=== PATIENT | male | born 1940 ===

== ENCOUNTER 2017-09-08 10:14 | Emergency (ER) | payer OTHER ==
[~2017-09-08] VITALS: Ht 177.8 cm; Wt 122.5 kg
[~2017-09-08 10:14] MED LIST: AMLO5 PO; ASPI81EC PO; ATEN50 PO; CHLO25B PO; DOCU100 PO; GABA600 PO; GEMF600 PO; GLUCHON PO; GLUCOSE PO; HYDACE10B PO; INSR10I SC; LOSA25 PO; METH10 PO; NORT25 PO; OMEP20ER PO; SIMV10 PO; UREATC TOP; WARF5 PO
[2017-09-08] MEDS ORDERED: AMLO10 PO (10:28)
[2017-09-08] MEDS ORDERED: BUDE10.22 INH (10:37)
[2017-09-08] MEDS ORDERED: CARB200 PO (10:37)
[2017-09-08] MEDS ORDERED: CARV25 PO (10:38)
[2017-09-08] MEDS ORDERED: INSULIN ASPART (10:39)
[2017-09-08] MEDS ORDERED: [UNRECOGNIZED DRUG - CODE] (10:39)
[2017-09-08] MEDS ORDERED: PREG150 PO (10:40)
[2017-09-08] MEDS ORDERED: OMEPRAZOLE MAGN20 MG PO (10:40)
[2017-09-08] MEDS ORDERED: TERA5 PO (10:40)
[2017-09-08] MEDS ORDERED: WARF5 PO (10:41)
[2017-09-08 11:00] LABS: BASOPHILS ABSOLUTE AUTO 0.04 K/mm3 (0.00-0.23); BASOPHILS PERCENT AUTO 1 % (0-2); EOSINOPHILS ABSOLUTE AUTO 0.13 K/mm3 (0.00-0.68); EOSINOPHILS PERCENT AUTO 2 % (0-6); Hematocrit 46.2 % (37.0-53.0); Hemoglobin 16.4 g/dL (13.5-17.5); IMMATURE GRAN ABSOLUTE AUTO 0.02 K/mm3 (0.00-0.10); IMMATURE GRAN PERCENT AUTO 0 % (0-1); LYMPHOCYTES ABSOLUTE AUTO 3.32 K/mm3 (0.84-5.20); LYMPHOCYTES PERCENT AUTO 38 % (21-46); MONOCYTES ABSOLUTE AUTO 0.61 K/mm3 (0.16-1.47); MONOCYTES PERCENT AUTO 7 % (4-13); Mean Corpuscular HGB 33.3 pg (26.0-34.0); Mean Corpuscular HGB Conc 35.5 g/dL (31.5-36.5); Mean Corpuscular Volume 94 fL (80-100); Mean Platelet Volume 10.9 fL (9.1-12.4); NEUTROPHILS ABSOLUTE AUTO 4.57 K/mm3 (1.96-9.15); NEUTROPHILS PERCENT AUTO 53 % (41-73); Platelet Count 144 K/mm3 (150-400); RDW Standard Deviation 44.7 fL (35.1-46.3); Red Blood Cell Count 4.93 M/mm3 (4.30-5.90); White Blood Cell Count 8.69 K/mm3 (4.00-11.30)
[2017-09-08 11:11] LABS: Alanine Aminotransfer (ALT/SGP 60 U/L (12-78); Albumin, Blood 3.4 g/dL (3.4-5.0); Albumin/Globulin Ratio 0.8 (0.8-1.8); Alk Phos 84 U/L (50-136); Anion Gap 12 mmol/L (6-16); Aspartate Aminotrans (AST/SGOT 52 U/L (12-37); Blood Urea Nitrogen 27 mg/dL (8-24); Bun/Creatinine Ratio 22.1 (12.0-20.0); CO2, Blood 23 mmol/L (21-32); Chloride, Blood 103 mmol/L (98-108); Creatinine, Blood 1.22 mg/dL (0.60-1.20); Globulin, Blood 4.4 g/dL (2.2-4.0); Glomerular Filtration Rate >60 (60-); Glucose, Blood 230 mg/dL (70-99); Potassium, Blood 3.5 mmol/L (3.5-5.5); Sodium, Blood 138 mmol/L (136-145); Total Protein, Blood 7.8 g/dL (6.4-8.2)
[2017-09-08 11:12] LABS: Troponin I <0.015 ng/mL (0.000-0.040)
[2017-09-08 11:20] LABS: International Normalized Ratio 1.31; Prothrombin Time Results 13.7 Sec (9.7-11.5)
[2017-09-08 11:38] LABS: Influenza A Negative (NEGATIVE); Influenza B Negative (NEGATIVE)
[2017-09-08] MEDS ORDERED: Zofran Odt4 MG SL (15:40)
== END 2017-09-08 16:20 | disposition home or self-care (01) ==
LOC: ER 10:14
PROVIDERS: Emergency Medicine
DX: R11.2 Nausea with vomiting, unspecified (principal); R10.9 Unspecified abdominal pain; I47.1 Supraventricular tachycardia; M26.629 Arthralgia of temporomandibular joint, unspecified side; G89.29 Other chronic pain; Z79.899 Other long term (current) drug therapy; Z79.01 Long term (current) use of anticoagulants; Z79.4 Long term (current) use of insulin
CPT/HCPCS: 36415; 71046; 80053; 83690; 84484; 85025; 85610; 87804; 93005; 93010; 96361; 96374; 96375; 96376; 99285; J1170; J2405; J7030

== ENCOUNTER 2019-06-21 15:04 | Emergency (ER) | payer OTHER ==
[~2019-06-21] VITALS: Ht 180.3 cm; Wt 129.3 kg
[~2019-06-21 15:04] MED LIST changes: +AMLO10 PO; +BUDE10.22 INH; +CARB200 PO; +CARV25 PO; +INSULIN ASPART; +OMEPRAZOLE MAGN20 MG PO; +PREG150 PO; +TERA5 PO; +Zofran Odt4 MG SL; +[UNRECOGNIZED DRUG - CODE]
[2019-06-21 16:08] LABS: International Normalized Ratio 2.55; Prothrombin Time Results 24.8 Sec (9.7-11.5)
== END 2019-06-21 16:44 | disposition home or self-care (01) ==
LOC: ER 15:04
PROVIDERS: Emergency Medicine
DX: R04.0 Epistaxis (principal); E11.9 Type 2 diabetes mellitus without complications; J44.9 Chronic obstructive pulmonary disease, unspecified; I10 Essential (primary) hypertension; Z79.899 Other long term (current) drug therapy
CPT/HCPCS: 30901; 36415; 85610; 99283-25

== ENCOUNTER 2019-06-23 08:57 | Emergency (ER) | payer OTHER ==
[~2019-06-23] VITALS: Ht 180.3 cm; Wt 113.4 kg
== END 2019-06-23 10:14 | disposition home or self-care (01) ==
LOC: ER 08:57
DX: Z48.01 Encounter for change or removal of surgical wound dressing (principal); E11.9 Type 2 diabetes mellitus without complications; I10 Essential (primary) hypertension; J44.9 Chronic obstructive pulmonary disease, unspecified; Z79.899 Other long term (current) drug therapy; Z79.01 Long term (current) use of anticoagulants; Z79.4 Long term (current) use of insulin

== ENCOUNTER 2020-03-23 19:20 | Emergency (ER) | payer OTHER ==
[~2020-03-23] VITALS: Ht 180.3 cm; Wt 120.2 kg
[~2020-03-23 19:20] MED LIST changes: +Bactrim Ds Tab1 EACH PO; +CEPH500 PO; +Capsaicin60 GM TOP; -LOSA25 PO; +LOSA50 PO
== END 2020-03-23 20:22 | disposition home or self-care (01) ==
LOC: ER 19:20
DX: Z76.0 Encounter for issue of repeat prescription (principal); E11.9 Type 2 diabetes mellitus without complications; J44.9 Chronic obstructive pulmonary disease, unspecified; I10 Essential (primary) hypertension; K21.9 Gastro-esophageal reflux disease without esophagitis; Z79.4 Long term (current) use of insulin; Z79.899 Other long term (current) drug therapy; Z79.01 Long term (current) use of anticoagulants
CPT/HCPCS: 99281

== ENCOUNTER 2021-02-26 21:08 | Emergency (ER) | payer OTHER ==
[~2021-02-26] VITALS: Ht 177.8 cm; Wt 127.0 kg
[2021-02-26 21:57] LABS: BASOPHILS ABSOLUTE AUTO 0.02 K/mm3 (0.00-0.23); BASOPHILS PERCENT AUTO 0 % (0-2); EOSINOPHILS ABSOLUTE AUTO 0.14 K/mm3 (0.00-0.68); EOSINOPHILS PERCENT AUTO 3 % (0-6); Hematocrit 36.7 % (37.0-53.0); Hemoglobin 12.1 g/dL (13.5-17.5); IMMATURE GRAN ABSOLUTE AUTO 0.01 K/mm3 (0.00-0.10); IMMATURE GRAN PERCENT AUTO 0 % (0-1); LYMPHOCYTES ABSOLUTE AUTO 1.01 K/mm3 (0.84-5.20); LYMPHOCYTES PERCENT AUTO 18 % (21-46); MONOCYTES ABSOLUTE AUTO 0.31 K/mm3 (0.16-1.47); MONOCYTES PERCENT AUTO 6 % (4-13); Mean Corpuscular HGB 33.9 pg (26.0-34.0); Mean Corpuscular Volume 103 fL (80-100); NEUTROPHILS ABSOLUTE AUTO 4.04 K/mm3 (1.96-9.15); NEUTROPHILS PERCENT AUTO 73 % (41-73); Platelet Count 116 K/mm3 (150-400); RDW Coefficient Variation 12.8 % (11.7-14.2); RDW Standard Deviation 48.9 fL (35.1-46.3); Red Blood Cell Count 3.57 M/mm3 (4.30-5.90); White Blood Cell Count 5.53 K/mm3 (4.00-11.30)
[2021-02-26 22:24] LABS: Albumin, Blood 3.1 g/dL (3.4-5.0); Bilirubin, Total 0.2 mg/dL (0.1-1.0); Bun/Creatinine Ratio 24.6 (12.0-20.0); Calcium, Blood 8.2 mg/dL (8.5-10.1); Creatinine, Blood 1.34 mg/dL (0.60-1.20); Globulin, Blood 3.2 g/dL (2.2-4.0); Potassium, Blood 4.4 mmol/L (3.5-5.5); Total Protein, Blood 6.3 g/dL (6.4-8.2)
== END 2021-02-27 01:19 | disposition home or self-care (01) ==
LOC: ER 21:08
PROVIDERS: Emergency Medicine
DX: E11.649 Type 2 diabetes mellitus with hypoglycemia without coma (principal); E11.22 Type 2 diabetes mellitus with diabetic chronic kidney disease; N18.30 Chronic kidney disease, stage 3 unspecified; J44.9 Chronic obstructive pulmonary disease, unspecified; I12.9 Hypertensive chronic kidney disease with stage 1 through stage 4 chronic kidney disease, or unspecified chronic kidney disease; Z79.01 Long term (current) use of anticoagulants; Z79.4 Long term (current) use of insulin; Z79.899 Other long term (current) drug therapy
CPT/HCPCS: 36415; 80053; 82947; 85025; 93005; 93010; 96374; 99285-25

== ENCOUNTER 2021-04-07 09:48 | Inpatient (IN) | payer OTHER ==
[~2021-04-07] VITALS: Ht 177.8 cm; Wt 127.0 kg
[~2021-04-07 09:48] MED LIST changes: -TERA5 PO; +Terazosin HCl10 MG PO
[2021-04-07 10:29] LABS: Appearance, Urine Hazy (Clear); Bilirubin, Urine Neg (Neg); Blood, Urine 2+ (Neg); Color, Urine Yellow (P-Yellow); Glucose Qualitative, Urine Neg (Neg); Ketones, Urine Neg (Neg); Leukocyte Esterase, Urine 2+ (Neg); Nitrite, Urine Neg (Neg); Protein, Urine 3+ (Neg); Specific Gravity, Urine 1.015 (1.003-1.022); Urobilinogen, Urine NORM (Normal)
[2021-04-07 10:29] LABS: BASOPHILS ABSOLUTE AUTO 0.02 K/mm3 (0.00-0.23); BASOPHILS PERCENT AUTO 1 % (0-2); EOSINOPHILS ABSOLUTE AUTO 0.14 K/mm3 (0.00-0.68); EOSINOPHILS PERCENT AUTO 3 % (0-6); Hematocrit 39.1 % (37.0-53.0); Hemoglobin 12.5 g/dL (13.5-17.5); IMMATURE GRAN ABSOLUTE AUTO 0.01 K/mm3 (0.00-0.10); IMMATURE GRAN PERCENT AUTO 0 % (0-1); LYMPHOCYTES ABSOLUTE AUTO 1.11 K/mm3 (0.84-5.20); LYMPHOCYTES PERCENT AUTO 26 % (21-46); MONOCYTES ABSOLUTE AUTO 0.25 K/mm3 (0.16-1.47); MONOCYTES PERCENT AUTO 6 % (4-13); Mean Corpuscular HGB 33.2 pg (26.0-34.0); Mean Corpuscular Volume 104 fL (80-100); Mean Platelet Volume 11.1 fL (9.1-12.4); NEUTROPHILS ABSOLUTE AUTO 2.71 K/mm3 (1.96-9.15); NEUTROPHILS PERCENT AUTO 64 % (41-73); Platelet Count 108 K/mm3 (150-400); RDW Coefficient Variation 13.1 % (11.7-14.2); RDW Standard Deviation 50.3 fL (35.1-46.3); Red Blood Cell Count 3.76 M/mm3 (4.30-5.90); White Blood Cell Count 4.24 K/mm3 (4.00-11.30)
[2021-04-07 10:39] LABS: Alanine Aminotransfer (ALT/SGP 18 U/L (12-78); Albumin, Blood 3.3 g/dL (3.4-5.0); Albumin/Globulin Ratio 0.9 (0.8-1.8); Alk Phos 71 U/L (50-136); Anion Gap 1 mmol/L (6-16); Aspartate Aminotrans (AST/SGOT 13 U/L (12-37); Bilirubin, Total 0.3 mg/dL (0.1-1.0); Blood Urea Nitrogen 31 mg/dL (8-24); Bun/Creatinine Ratio 22.5 (12.0-20.0); CO2, Blood 35 mmol/L (21-32); Calcium, Blood 8.6 mg/dL (8.5-10.1); Chloride, Blood 109 mmol/L (98-108); Creatinine, Blood 1.38 mg/dL (0.60-1.20); Globulin, Blood 3.6 g/dL (2.2-4.0); Glomerular Filtration Rate 50 (60-); Glucose, Blood 98 mg/dL (70-99); Potassium, Blood 4.4 mmol/L (3.5-5.5); Sodium, Blood 145 mmol/L (136-145); Total Protein, Blood 6.9 g/dL (6.4-8.2); Troponin I <0.015 ng/mL (0.000-0.040)
[2021-04-07 11:06] LABS: Bacteria Many /hpf; Squamous Epithelial Cells Rare /hpf (Few); White Blood Cells, Urine 25-50 /hpf (0-5)
[2021-04-07] MEDS ORDERED: CEFP200 PO ×2 (11:13→14:24)
[2021-04-07] MEDS ORDERED: AZIT250 PO ×2 (11:13→14:24)
[2021-04-07 16:22] LABS: BASOPHILS ABSOLUTE AUTO 0.02 K/mm3 (0.00-0.23); BASOPHILS PERCENT AUTO 0 % (0-2); EOSINOPHILS ABSOLUTE AUTO 0.12 K/mm3 (0.00-0.68); EOSINOPHILS PERCENT AUTO 2 % (0-6); Hematocrit 42.1 % (37.0-53.0); Hemoglobin 13.7 g/dL (13.5-17.5); IMMATURE GRAN ABSOLUTE AUTO 0.07 K/mm3 (0.00-0.10); IMMATURE GRAN PERCENT AUTO 1 % (0-1); LYMPHOCYTES ABSOLUTE AUTO 1.57 K/mm3 (0.84-5.20); LYMPHOCYTES PERCENT AUTO 27 % (21-46); MONOCYTES ABSOLUTE AUTO 0.16 K/mm3 (0.16-1.47); MONOCYTES PERCENT AUTO 3 % (4-13); Mean Corpuscular HGB 33.8 pg (26.0-34.0); Mean Corpuscular HGB Conc 32.5 g/dL (31.5-36.5); Mean Corpuscular Volume 104 fL (80-100); Mean Platelet Volume 10.6 fL (9.1-12.4); NEUTROPHILS ABSOLUTE AUTO 3.96 K/mm3 (1.96-9.15); NEUTROPHILS PERCENT AUTO 67 % (41-73); Platelet Count 114 K/mm3 (150-400); RDW Coefficient Variation 13.1 % (11.7-14.2); RDW Standard Deviation 50.1 fL (35.1-46.3); Red Blood Cell Count 4.05 M/mm3 (4.30-5.90)
[2021-04-07 16:33] LABS: International Normalized Ratio 1.04; Prothrombin Time Results 11.2 Sec (9.7-11.5)
[2021-04-07 16:37] LABS: Bun/Creatinine Ratio 24.2 (12.0-20.0); Calcium, Blood 8.8 mg/dL (8.5-10.1); Creatinine, Blood 1.2 mg/dL (0.60-1.20); Potassium, Blood 4.9 mmol/L (3.5-5.5)
[2021-04-07] MEDS ORDERED: NOVOLOG FL100 UNIT/3 SC (16:56)
[2021-04-07] MEDS ORDERED: NOVOLIN N100 UNIT/2 SC (16:57)
[2021-04-07] MEDS ORDERED: LOSARTAN POTAS100 M1 PO (16:57)
[2021-04-07] MEDS ORDERED: STIOLTO RESPIMAT4 G1 INH (16:58)
[2021-04-07] MEDS ORDERED: Aspir 8181 MG PO (16:59)
[2021-04-07] MEDS ORDERED: VITAMIN D31000 UNI1 PO (17:00)
[2021-04-07 19:08] LABS: CHOL/HDL RATIO 5.6; Cholesterol 201 mg/dL (50-200); HDL Cholesterol 36 mg/dL (>39); LDL/HDL RATIO 3.3; Low Density Lipoprotein Chol 119 mg/dL (0-110); Triglycerides 231 mg/dL (30-160); Very Low Density Lipoprot Chol 46 mg/dL (6-32)
[2021-04-08 04:11] LABS: BASOPHILS ABSOLUTE AUTO 0.01 K/mm3 (0.00-0.23); BASOPHILS PERCENT AUTO 0 % (0-2); EOSINOPHILS PERCENT AUTO 0 % (0-6); Hemoglobin 13.4 g/dL (13.5-17.5); IMMATURE GRAN ABSOLUTE AUTO 0.01 K/mm3 (0.00-0.10); IMMATURE GRAN PERCENT AUTO 0 % (0-1); LYMPHOCYTES ABSOLUTE AUTO 0.63 K/mm3 (0.84-5.20); LYMPHOCYTES PERCENT AUTO 14 % (21-46); MONOCYTES ABSOLUTE AUTO 0.14 K/mm3 (0.16-1.47); MONOCYTES PERCENT AUTO 3 % (4-13); Mean Corpuscular HGB 33.6 pg (26.0-34.0); Mean Corpuscular HGB Conc 32.7 g/dL (31.5-36.5); Mean Corpuscular Volume 103 fL (80-100); Mean Platelet Volume 11.2 fL (9.1-12.4); NEUTROPHILS ABSOLUTE AUTO 3.89 K/mm3 (1.96-9.15); NEUTROPHILS PERCENT AUTO 83 % (41-73); Platelet Count 118 K/mm3 (150-400); RDW Standard Deviation 48.9 fL (35.1-46.3); Red Blood Cell Count 3.99 M/mm3 (4.30-5.90); White Blood Cell Count 4.68 K/mm3 (4.00-11.30)
[2021-04-08 04:38] LABS: Albumin, Blood 3.4 g/dL (3.4-5.0); Albumin/Globulin Ratio 0.9 (0.8-1.8); Bilirubin, Total 0.4 mg/dL (0.1-1.0); Bun/Creatinine Ratio 23.3 (12.0-20.0); Calcium, Blood 8.9 mg/dL (8.5-10.1); Creatinine, Blood 1.33 mg/dL (0.60-1.20); Globulin, Blood 3.7 g/dL (2.2-4.0); Total Protein, Blood 7.1 g/dL (6.4-8.2)
--- NOTE | 2021-04-08 07:14 | NUR ---
SHIFT SUMMARY NO ACUTE EVENTS THIS SHIFT. PT ALERT AND ORIENTED X4. ON FLUID RESTRICTIONS. GENERALIZED WEAKNESS. O2 SATS MAINTAINING OVER 97% ON 2L NC. HR AFIB 80'S-100'S. HAS ESPINOZA IN PLACE DRAINING YELLOW URINE TO GRAVITY. IV IN RIGHT ARM. ASLEEP THROUGH MOST OF NIGHT. PLEASANT AND COOPERATIVE TO CARE. WILL CONTINUE TO MONITOR TILL REPORT GIVEN TO DAYSHIFT RN
--- NOTE | 2021-04-08 09:13 | NUR ---
US IN W/PT.
[2021-04-09 04:51] LABS: Bun/Creatinine Ratio 29.7 (12.0-20.0); Calcium, Blood 8.9 mg/dL (8.5-10.1); Creatinine, Blood 1.38 mg/dL (0.60-1.20); Free Thyroxine 0.75 ng/dL (0.70-1.60); Potassium, Blood 4.9 mmol/L (3.5-5.5)
--- NOTE | 2021-04-09 07:10 | NUR ---
SUMMARY PT REPORTS DID NOT SLEEP WELL. DENIED CP OR SOB TONIGHT.GLUCOSE STABLE. PT REQUESTING CAPSACIN CREAM FOR FEET THIS AM. WILL REPORT TO DAY RN.
[2021-04-09] MEDS ORDERED: INSULANPEN SC (11:09)
[2021-04-09] MEDS ORDERED: HUMULIN R100 UNIT/2 SC (11:20)
--- NOTE | 2021-04-09 11:35 | NUR ---
UPDATE PT WAS UP TO SIDE OF BED, DANGLING; NO REPORT OF LIGHT HEADEDNESS OR DIZZINOUS. PT UP WITH GAITBELT AND FWW TO AMBULATE ABOUT 20 FEET WITH RT. PT TOLERATED WELL. O2 SAT2 REMINED IN THE 90'S.
[2021-04-09] MEDS ORDERED: FURO40 PO (11:43)
[2021-04-09] MEDS ORDERED: PRED20 PO (11:43)
--- NOTE | 2021-04-09 12:28 | NUR ---
UPDATED FAMILY THIS RN CONTACTED THE DAUGHTER IN-LAW OF PT AFTER GETTING PERMISSION. DAUGHTER IN-LAW EXPRESSED CONCERNS OF WHEN PT IS DISCAHRGED BECAUSE NO ONE WILL BE HOME AT NIGHT TIME WITH HIM. SHE STATED THAT THE [facility] IS PREPAR[facility] A PLACE FOR PT IN [place] BUT THE PLACE WILL NOT BE READY UNTIL THE END OF APRIL. DAUGHTER IN-LAW ASKED FOR MEDICAL STAFF TO TALK TO PT ABOUT [facility] SNF UNTIL [facility] IS READY FOR PT. THIS RN EXPLAINED THAT I COULD INFROM THE OPTION OF SNF TO PT, BUT PT ULTIMATETLEY MAKES THE CALL. DAUGHTER IN-LAW UNDERSTOOD.
--- NOTE | 2021-04-09 15:14 | NUR ---
DISCHARGE AT 1505, PT WAS DISCHARGED TO GO HOME. FAMILY MEMBER OUT [facility], [employer] MEMBER TRANSFERED PT VIA WHEEL CHAIR. PT BELONGING IN BAG WITH PT.
== END 2021-04-09 15:07 | disposition home or self-care (01) | DRG 193 ==
LOC: ER 09:48 → SURS 18:12 → PCU 18:12 → SURS 21:10
PROVIDERS: Emergency Medicine; Internal Medicine; ADMIT Hospitalist
DX: J18.9 Pneumonia, unspecified organism (principal); J81.0 Acute pulmonary edema; J96.21 Acute and chronic respiratory failure with hypoxia; N39.0 Urinary tract infection, site not specified; J44.0 Chronic obstructive pulmonary disease with (acute) lower respiratory infection; J44.1 Chronic obstructive pulmonary disease with (acute) exacerbation; I48.20 Chronic atrial fibrillation, unspecified; Z20.822 Contact with and (suspected) exposure to COVID-19; B96.20 Unspecified Escherichia coli [E. coli] as the cause of diseases classified elsewhere; N18.30 Chronic kidney disease, stage 3 unspecified; E66.01 Morbid (severe) obesity due to excess calories; I48.0 Paroxysmal atrial fibrillation; E11.22 Type 2 diabetes mellitus with diabetic chronic kidney disease; I12.9 Hypertensive chronic kidney disease with stage 1 through stage 4 chronic kidney disease, or unspecified chronic kidney disease; G47.33 Obstructive sleep apnea (adult) (pediatric); E11.40 Type 2 diabetes mellitus with diabetic neuropathy, unspecified; K21.9 Gastro-esophageal reflux disease without esophagitis; Z96.653 Presence of artificial knee joint, bilateral; Z86.711 Personal history of pulmonary embolism; Z86.73 Personal history of transient ischemic attack (TIA), and cerebral infarction without residual deficits
CPT/HCPCS: 36415; 51702; 71045; 71260; 80048; 80053; 80061; 81001; 82947; 83880; 84439; 84443; 84484; 85025; 85610; 87077; 87086; 87186; 93005; 93010; 93306; 94640; 94644; 94660; 94760; 94761; 96365-59; 96366-59; 96367-59; 96375-59; 99285-25; A9270; J0456; J0696; J1650; J1815; J1940; J2920; J2930; J7050; J7512; Q9967

== ENCOUNTER 2021-04-16 15:38 | Inpatient (IN) | payer OTHER ==
[~2021-04-16] VITALS: Ht 177.8 cm; Wt 117.9 kg
[~2021-04-16 15:38] MED LIST changes: +AZIT250 PO; +Aspir 8181 MG PO; +CEFP200 PO; +FURO40 PO; +HUMULIN R100 UNIT/2 SC; +INSULANPEN SC; +LOSARTAN POTAS100 M1 PO; +NOVOLIN N100 UNIT/2 SC; +NOVOLOG FL100 UNIT/3 SC; +PRED20 PO; +STIOLTO RESPIMAT4 G1 INH; +VITAMIN D31000 UNI1 PO
[2021-04-16 16:04] LABS: BASOPHILS ABSOLUTE AUTO 0.03 K/mm3 (0.00-0.23); BASOPHILS PERCENT AUTO 0 % (0-2); EOSINOPHILS ABSOLUTE AUTO 0.08 K/mm3 (0.00-0.68); EOSINOPHILS PERCENT AUTO 1 % (0-6); Hematocrit 44.3 % (37.0-53.0); Hemoglobin 15.1 g/dL (13.5-17.5); IMMATURE GRAN ABSOLUTE AUTO 0.02 K/mm3 (0.00-0.10); IMMATURE GRAN PERCENT AUTO 0 % (0-1); LYMPHOCYTES ABSOLUTE AUTO 1.44 K/mm3 (0.84-5.20); LYMPHOCYTES PERCENT AUTO 22 % (21-46); MONOCYTES ABSOLUTE AUTO 0.36 K/mm3 (0.16-1.47); MONOCYTES PERCENT AUTO 5 % (4-13); Mean Corpuscular HGB 34.2 pg (26.0-34.0); Mean Corpuscular HGB Conc 34.1 g/dL (31.5-36.5); Mean Corpuscular Volume 101 fL (80-100); Mean Platelet Volume 11.5 fL (9.1-12.4); NEUTROPHILS ABSOLUTE AUTO 4.76 K/mm3 (1.96-9.15); NEUTROPHILS PERCENT AUTO 71 % (41-73); Platelet Count 143 K/mm3 (150-400); RDW Coefficient Variation 13.2 % (11.7-14.2); RDW Standard Deviation 48.9 fL (35.1-46.3); Red Blood Cell Count 4.41 M/mm3 (4.30-5.90); White Blood Cell Count 6.69 K/mm3 (4.00-11.30)
[2021-04-16 16:35] LABS: Alanine Aminotransfer (ALT/SGP 49 U/L (12-78); Albumin, Blood 3.1 g/dL (3.4-5.0); Albumin/Globulin Ratio 0.8 (0.8-1.8); Alk Phos 85 U/L (50-136); Anion Gap 7 mmol/L (6-16); Aspartate Aminotrans (AST/SGOT 18 U/L (12-37); Bilirubin, Total 0.7 mg/dL (0.1-1.0); Blood Urea Nitrogen 65 mg/dL (8-24); Bun/Creatinine Ratio 30.7 (12.0-20.0); CO2, Blood 30 mmol/L (21-32); Calcium, Blood 8.6 mg/dL (8.5-10.1); Chloride, Blood 102 mmol/L (98-108); Creatinine, Blood 2.12 mg/dL (0.60-1.20); Ethanol (Alcohol), Blood, Med <3 mg/dL; Globulin, Blood 3.9 g/dL (2.2-4.0); Glomerular Filtration Rate 30 (60-); Glucose, Blood 247 mg/dL (70-99); Potassium, Blood 3.9 mmol/L (3.5-5.5); Sodium, Blood 139 mmol/L (136-145)
[2021-04-16 17:40] LABS: Base Excess Venous -0.3 mmol/L; Bicarbonate Venous 24.4 mmol/L (24.0-30.0); PCO2 Venous 36 mmHg (38-42); PO2 Venous 195 mmHg (38-42); pH Blood Venous 7.43 (7.34-7.37)
[2021-04-16 18:30] LABS: SARS-Cov-2 (COVID-19) PCR, MMC NEGATIVE (NEGATIVE)
[2021-04-16 21:18] LABS: U Amphetamine Screen Not Detected; U Barbituate Screen Not Detected; U Benzodiazapine Screen Not Detected; U Buprenorphine Screen Not Detected; U Cannabinoids Screen Not Detected; U Cocaine Screen Not Detected; U Methadone Screen Not Detected; U Methamphetamine Screen Not Detected; U Opiates Screen Not Detected; U Oxycodone Screen Not Detected; U Phencyclidine Screen Not Detected; U Propoxyphene Screen Not Detected
[2021-04-16] MEDS ORDERED: PRED20 PO (21:59)
[2021-04-16] MEDS ORDERED: DOXY100 PO (21:59)
[2021-04-16 23:13] LABS: Source, Urine Catheter
[2021-04-16 23:23] LABS: Bilirubin, Urine Neg (Neg); Blood, Urine 2+ (Neg); Glucose Qualitative, Urine Neg (Neg); Ketones, Urine Neg (Neg); Leukocyte Esterase, Urine Neg (Neg); Nitrite, Urine Neg (Neg); Protein, Urine 1+ (Neg); Urobilinogen, Urine NORM (Normal)
[2021-04-16 23:29] LABS: Appearance, Urine Clear (Clear); Color, Urine Yellow (P-Yellow)
[2021-04-16 23:30] LABS: Amorphous Light (0-Heavy); Bacteria Rare /hpf; Hyaline Casts 25-50 /lpf (0-2); Red Blood Cells, Urine 25-50 /hpf (0-2); Squamous Epithelial Cells Rare /hpf (Few); White Blood Cells, Urine Not Seen /hpf (0-5)
--- NOTE | 2021-04-17 01:21 | NUR ---
ADMITTED 80 YR OLD MALE FROM THE ED WITH SOB, DX INCLUDE COPD EXACERBATION AND GENIA. POOR HISTORIAN, VOICE "I DONT KNOW" TO MANY QUESTIONS ASKED WITH ADMISSION. ORIENTED TO USE OF CALL LIGHT. CALL LIGHT IN [place]. BED ALARM ON.
--- NOTE | 2021-04-17 04:28 | NUR ---
WALL TAPER SUMMARY ADMITTED FOR COPD EXACERBATION. PT IS DNR. PT IS SLIGHTLY CONFUSED BUT PLEASANT. PT ON ROOM AIR WITH NO SIGNS OF RESPIRATORY DISTRESS. NO OTHER CONCERNS THIS SHIFT.
[2021-04-17 05:15] LABS: BASOPHILS ABSOLUTE AUTO 0.01 K/mm3 (0.00-0.23); BASOPHILS PERCENT AUTO 0 % (0-2); EOSINOPHILS ABSOLUTE AUTO 0.01 K/mm3 (0.00-0.68); EOSINOPHILS PERCENT AUTO 0 % (0-6); Hemoglobin 13.6 g/dL (13.5-17.5); IMMATURE GRAN ABSOLUTE AUTO 0.04 K/mm3 (0.00-0.10); IMMATURE GRAN PERCENT AUTO 1 % (0-1); LYMPHOCYTES ABSOLUTE AUTO 0.97 K/mm3 (0.84-5.20); LYMPHOCYTES PERCENT AUTO 12 % (21-46); MONOCYTES ABSOLUTE AUTO 0.21 K/mm3 (0.16-1.47); MONOCYTES PERCENT AUTO 3 % (4-13); Mean Corpuscular HGB 33.3 pg (26.0-34.0); Mean Corpuscular HGB Conc 33.2 g/dL (31.5-36.5); Mean Corpuscular Volume 101 fL (80-100); Mean Platelet Volume 11.1 fL (9.1-12.4); NEUTROPHILS ABSOLUTE AUTO 6.64 K/mm3 (1.96-9.15); NEUTROPHILS PERCENT AUTO 84 % (41-73); Platelet Count 128 K/mm3 (150-400); RDW Coefficient Variation 13.1 % (11.7-14.2); RDW Standard Deviation 48.2 fL (35.1-46.3); Red Blood Cell Count 4.08 M/mm3 (4.30-5.90); White Blood Cell Count 7.88 K/mm3 (4.00-11.30)
[2021-04-17 06:05] LABS: Albumin, Blood 2.9 g/dL (3.4-5.0); Albumin/Globulin Ratio 0.8 (0.8-1.8); Bilirubin, Total 0.4 mg/dL (0.1-1.0); Bun/Creatinine Ratio 32.8 (12.0-20.0); Calcium, Blood 8.4 mg/dL (8.5-10.1); Creatinine, Blood 1.92 mg/dL (0.60-1.20); Globulin, Blood 3.7 g/dL (2.2-4.0); Potassium, Blood 4.2 mmol/L (3.5-5.5); Total Protein, Blood 6.6 g/dL (6.4-8.2)
--- NOTE | 2021-04-17 23:39 | NUR ---
ASSUMPTION OF CARE 2149: PT PRESENTS IN BED, WATCHING HIGH SCHOOL FOOTBALL ON TV. ESPINOZA IN PLACE AND DRAINING DARK YELLOW URINE. AMBULATES VIA 2 PERSON ASSIST TO BSC FOR BOWEL MOVEMENT. SALINE LOCKED IV IN RFA. PT A&O X 2-3. LUNG SOUNDS CLEAR BUT DIMINISHED. PT PLEASANT WITH STAFF, WILL USE CALL LIGHT APPROPRIATELY TO COMMUNICATE NEEDS. BED ALARM ON, BED IN LOWEST POSITION. WILL CONTINUE TO MONITOR.
--- NOTE | 2021-04-18 04:56 | NUR ---
SHIFT SUMMARY PT WAS ABLE TO SLEEP WELL THIS SHIFT. BED IN LOWEST POSITION, CALL LIGHT WITHIN REACH. NO ACUTE CHANGES. ESPINOZA IN PLACE AND DRAINING DARK YELLOW URINE. CONTINUES ON ROOM AIR. IV FLUSHES WELL. WILL CONTINUE TO MONITOR.
[2021-04-18 06:13] LABS: Albumin, Blood 2.7 g/dL (3.4-5.0); Anion Gap 7 mmol/L (6-16); Blood Urea Nitrogen 62 mg/dL (8-24); Bun/Creatinine Ratio 38.3 (12.0-20.0); CO2, Blood 29 mmol/L (21-32); Calcium, Blood 8.7 mg/dL (8.5-10.1); Chloride, Blood 105 mmol/L (98-108); Creatinine, Blood 1.62 mg/dL (0.60-1.20); Glomerular Filtration Rate 41 (60-); Glucose, Blood 119 mg/dL (70-99); Phosphorus, Blood 3.4 mg/dL (2.5-4.9); Potassium, Blood 3.7 mmol/L (3.5-5.5); Sodium, Blood 141 mmol/L (136-145)
[2021-04-18 13:43] LABS: SARS-Cov-2 (COVID-19) PCR, MMC NEGATIVE (NEGATIVE)
[2021-04-18] MEDS ORDERED: GUAI600T33 PO (13:56)
[2021-04-18] MEDS ORDERED: Ventolin5 MG/1 ML INH (13:56)
[2021-04-18] MEDS ORDERED: OMEP20ER PO (13:57)
[2021-04-18] MEDS ORDERED: TERA5 PO (13:57)
[2021-04-18] MEDS ORDERED: CHLO25B PO (14:06)
--- NOTE | 2021-04-18 14:18 | NUR ---
FACILITY DISCHARGE COMPLETED. ORDERS FAXED TO [facility]. PACKET PLACED AT BEDSIDE. TRANSPORT SCHEDULED FOR 1630 VIA WHEELCHAIR. FAMILY/NOK NOTIFIED OF DC TIME AND PLAN. PATIENT NOTIFIED. ALL ARE AGREEABLE. BUFFING AND SUEDING MACHINE OPERATOR AND BEDSIDE RN NOTIFIED.
--- NOTE | 2021-04-18 14:58 | NUR ---
PT IS AO,BUT FORGETFULL AT TIMES,PT IS ON ROOM AIR,PT IS ONE ASSIST WITH GAIT BELT,PT HAS NO ACUTE CHANGES T/O SHIFT,PT ASSESSMENT REMAINS UNCHANGED. PT IS DISCHARGE TO [facility] FOR [facility], PT GATHER ALL BELONGINGS,PT SITING IN THE CHAIR WATING FOR TRANSPORT.
== END 2021-04-18 16:46 | DRG 682 ==
LOC: ER 15:38 → MEDS 23:19
PROVIDERS: Family Medicine; Internal Medicine; Student in an Organized Health Care Education/Training Program; ADMIT Hospitalist
PROC: 8E0ZXY6 Isolation (ICD-10-PCS; principal; 2021-04-16)
DX: N17.9 Acute kidney failure, unspecified (principal); J96.01 Acute respiratory failure with hypoxia; J44.1 Chronic obstructive pulmonary disease with (acute) exacerbation; F05 Delirium due to known physiological condition; N18.30 Chronic kidney disease, stage 3 unspecified; Z20.822 Contact with and (suspected) exposure to COVID-19; F03.90 Unspecified dementia, unspecified severity, without behavioral disturbance, psychotic disturbance, mood disturbance, and anxiety; N40.0 Benign prostatic hyperplasia without lower urinary tract symptoms; E11.22 Type 2 diabetes mellitus with diabetic chronic kidney disease; E11.40 Type 2 diabetes mellitus with diabetic neuropathy, unspecified; K21.9 Gastro-esophageal reflux disease without esophagitis; G47.33 Obstructive sleep apnea (adult) (pediatric); I12.9 Hypertensive chronic kidney disease with stage 1 through stage 4 chronic kidney disease, or unspecified chronic kidney disease; F01.50 Vascular dementia, unspecified severity, without behavioral disturbance, psychotic disturbance, mood disturbance, and anxiety; Z86.711 Personal history of pulmonary embolism; Z96.653 Presence of artificial knee joint, bilateral; Z79.4 Long term (current) use of insulin; Z79.899 Other long term (current) drug therapy; Z79.82 Long term (current) use of aspirin
CPT/HCPCS: 36415; 51701; 51702; 51798; 70450; 71046; 76770; 80053; 80069; 81001; 82436; 82570; 82607; 82746; 82803; 82947; 83036; 83880; 84300; 84540; 85025; 86592; 93005; 93010; 94640; 94644; 94760; 96360-59; 97110; 97116; 97162; 97165; 97530; 97535; 99285-25; A9270; G0480; J1650; J1815; J2920; J7030; J7512; U0004

== ENCOUNTER 2021-04-23 10:24 | Inpatient (IN) | payer OTHER ==
[~2021-04-23] VITALS: Ht 177.8 cm; Wt 117.9 kg
[~2021-04-23 10:24] MED LIST changes: +DOXY100 PO; +GUAI600T33 PO; +TERA5 PO; +Ventolin5 MG/1 ML INH
[2021-04-23 10:51] LABS: BASOPHILS ABSOLUTE AUTO 0.03 K/mm3 (0.00-0.23); BASOPHILS PERCENT AUTO 1 % (0-2); EOSINOPHILS ABSOLUTE AUTO 0.16 K/mm3 (0.00-0.68); EOSINOPHILS PERCENT AUTO 3 % (0-6); Hematocrit 40.2 % (37.0-53.0); Hemoglobin 13.6 g/dL (13.5-17.5); IMMATURE GRAN PERCENT AUTO 0 % (0-1); LYMPHOCYTES ABSOLUTE AUTO 1.39 K/mm3 (0.84-5.20); LYMPHOCYTES PERCENT AUTO 27 % (21-46); MONOCYTES ABSOLUTE AUTO 0.39 K/mm3 (0.16-1.47); MONOCYTES PERCENT AUTO 8 % (4-13); Mean Corpuscular HGB 34.6 pg (26.0-34.0); Mean Corpuscular HGB Conc 33.8 g/dL (31.5-36.5); Mean Corpuscular Volume 102 fL (80-100); Mean Platelet Volume 11.2 fL (9.1-12.4); NEUTROPHILS ABSOLUTE AUTO 3.25 K/mm3 (1.96-9.15); NEUTROPHILS PERCENT AUTO 62 % (41-73); Platelet Count 103 K/mm3 (150-400); RDW Coefficient Variation 13.7 % (11.7-14.2); RDW Standard Deviation 51.4 fL (35.1-46.3); Red Blood Cell Count 3.93 M/mm3 (4.30-5.90); White Blood Cell Count 5.22 K/mm3 (4.00-11.30)
[2021-04-23 11:21] LABS: Albumin, Blood 2.8 g/dL (3.4-5.0); Albumin/Globulin Ratio 0.8 (0.8-1.8); Bilirubin, Total 0.4 mg/dL (0.1-1.0); Calcium, Blood 8.9 mg/dL (8.5-10.1); Creatinine, Blood 1.5 mg/dL (0.60-1.20); Globulin, Blood 3.4 g/dL (2.2-4.0); Potassium, Blood 4.2 mmol/L (3.5-5.5); Total Protein, Blood 6.2 g/dL (6.4-8.2)
[2021-04-23] MEDS ORDERED: Stiolto Respimat Inh INH (12:09)
[2021-04-23 13:07] LABS: SARS-Cov-2 (COVID-19) PCR, MMC NEGATIVE (NEGATIVE)
--- NOTE | 2021-04-23 18:28 | NUR ---
SHIFT SUMMARY PATIENT ADMITTED FORM ED WITH SLURRED SPEECH. CT HEAD POSTITIVE FOR ISCHEMIC STROKE; NEURO CHECK COMPLETED, VSS, PATIENT WITH MILD SLURRED SPEECH; SPEECH EVAL COMPLETED-OKAY FOR COLD PUREED NO LIQUID UNTIL VIDEO SWALLOW COMPLETED TOMORROW. PT/OT TO EVAL TOMORROW, BEDREST CURRENTLY. PATIENT AOX4; URINATING VIA URINAL
[2021-04-24 05:16] LABS: BASOPHILS ABSOLUTE AUTO 0.02 K/mm3 (0.00-0.23); BASOPHILS PERCENT AUTO 0 % (0-2); EOSINOPHILS ABSOLUTE AUTO 0.12 K/mm3 (0.00-0.68); EOSINOPHILS PERCENT AUTO 2 % (0-6); Hematocrit 40.4 % (37.0-53.0); Hemoglobin 13.8 g/dL (13.5-17.5); IMMATURE GRAN ABSOLUTE AUTO 0.02 K/mm3 (0.00-0.10); IMMATURE GRAN PERCENT AUTO 0 % (0-1); LYMPHOCYTES ABSOLUTE AUTO 1.32 K/mm3 (0.84-5.20); LYMPHOCYTES PERCENT AUTO 26 % (21-46); MONOCYTES ABSOLUTE AUTO 0.34 K/mm3 (0.16-1.47); MONOCYTES PERCENT AUTO 7 % (4-13); Mean Corpuscular HGB 34.2 pg (26.0-34.0); Mean Corpuscular HGB Conc 34.2 g/dL (31.5-36.5); Mean Corpuscular Volume 100 fL (80-100); NEUTROPHILS ABSOLUTE AUTO 3.34 K/mm3 (1.96-9.15); NEUTROPHILS PERCENT AUTO 65 % (41-73); Platelet Count 102 K/mm3 (150-400); RDW Coefficient Variation 13.8 % (11.7-14.2); Red Blood Cell Count 4.03 M/mm3 (4.30-5.90); White Blood Cell Count 5.16 K/mm3 (4.00-11.30)
[2021-04-24 05:39] LABS: Alanine Aminotransfer (ALT/SGP 40 U/L (12-78); Albumin, Blood 2.8 g/dL (3.4-5.0); Albumin/Globulin Ratio 0.8 (0.8-1.8); Alk Phos 96 U/L (50-136); Anion Gap 5 mmol/L (6-16); Aspartate Aminotrans (AST/SGOT 14 U/L (12-37); Bilirubin, Total 0.5 mg/dL (0.1-1.0); Blood Urea Nitrogen 39 mg/dL (8-24); Bun/Creatinine Ratio 31.2 (12.0-20.0); CHOL/HDL RATIO 6.2; CO2, Blood 28 mmol/L (21-32); Calcium, Blood 9.3 mg/dL (8.5-10.1); Chloride, Blood 108 mmol/L (98-108); Cholesterol 187 mg/dL (50-200); Creatinine, Blood 1.25 mg/dL (0.60-1.20); Globulin, Blood 3.6 g/dL (2.2-4.0); Glomerular Filtration Rate 56 (60-); Glucose, Blood 150 mg/dL (70-99); HDL Cholesterol 30 mg/dL (>39); LDL/HDL RATIO 3.1; Low Density Lipoprotein Chol 92 mg/dL (0-110); Potassium, Blood 4.2 mmol/L (3.5-5.5); Sodium, Blood 141 mmol/L (136-145); Total Protein, Blood 6.4 g/dL (6.4-8.2); Triglycerides 327 mg/dL (30-160); Very Low Density Lipoprot Chol 65 mg/dL (6-32)
--- NOTE | 2021-04-24 06:32 | NUR ---
VSS. PT SLEPT THROUGHOUT MOST OF SHIFT. NO CHANGES TO NEURO CHECKS Q4H. SLIGHTLY SLURRED SPEECH. L LE UNABLE TO HOLD OFF BED ENTIRE 10 SECONDS. NO OTHER NEURO DEFICITS NOTED. BS Q6H. VOIDS USING URINAL AT BEDSIDE.
[2021-04-25 04:39] LABS: Albumin, Blood 2.8 g/dL (3.4-5.0); Anion Gap 6 mmol/L (6-16); Blood Urea Nitrogen 37 mg/dL (8-24); Bun/Creatinine Ratio 25.9 (12.0-20.0); CO2, Blood 27 mmol/L (21-32); Calcium, Blood 9.2 mg/dL (8.5-10.1); Chloride, Blood 110 mmol/L (98-108); Creatinine, Blood 1.43 mg/dL (0.60-1.20); Glomerular Filtration Rate 48 (60-); Glucose, Blood 152 mg/dL (70-99); Phosphorus, Blood 3.7 mg/dL (2.5-4.9); Potassium, Blood 4.1 mmol/L (3.5-5.5); Sodium, Blood 143 mmol/L (136-145)
[2021-04-25 14:20] LABS: SARS-Cov-2 (COVID-19) PCR, MMC NEGATIVE (NEGATIVE)
--- NOTE | 2021-04-25 18:02 | NUR ---
DISCHARGE PATIENT DISCHARGED IN STABLE CONDITION TO [facility] [place]. PERIPHERAL IV REMOVED, TELE MONITORING D/C. ALL BELONGINGS PACKED AND SENT WITH PATIENT. PATIENT TRANSFERRED VIA WHEELCHAIR EMS
== END 2021-04-25 17:51 | DRG 66 ==
LOC: ER 10:24 → SURS 12:04
PROVIDERS: Emergency Medicine; Family Medicine; Nurse Practitioner Acute Care; ADMIT Internal Medicine
DX: I63.81 Other cerebral infarction due to occlusion or stenosis of small artery (principal); Z20.822 Contact with and (suspected) exposure to COVID-19; R47.1 Dysarthria and anarthria; R29.810 Facial weakness; R13.10 Dysphagia, unspecified; E11.22 Type 2 diabetes mellitus with diabetic chronic kidney disease; I12.9 Hypertensive chronic kidney disease with stage 1 through stage 4 chronic kidney disease, or unspecified chronic kidney disease; N18.30 Chronic kidney disease, stage 3 unspecified; J44.9 Chronic obstructive pulmonary disease, unspecified; G47.33 Obstructive sleep apnea (adult) (pediatric); E78.1 Pure hyperglyceridemia; M19.90 Unspecified osteoarthritis, unspecified site; I48.91 Unspecified atrial fibrillation; E66.01 Morbid (severe) obesity due to excess calories; N40.0 Benign prostatic hyperplasia without lower urinary tract symptoms; F03.90 Unspecified dementia, unspecified severity, without behavioral disturbance, psychotic disturbance, mood disturbance, and anxiety; D69.6 Thrombocytopenia, unspecified; Z66 Do not resuscitate; Z68.37 Body mass index [BMI] 37.0-37.9, adult; Z86.711 Personal history of pulmonary embolism; Z79.899 Other long term (current) drug therapy; Z79.82 Long term (current) use of aspirin; Z79.4 Long term (current) use of insulin; Z79.52 Long term (current) use of systemic steroids
CPT/HCPCS: 36415; 70450; 74230; 80053; 80061; 80069; 82947; 83036; 83735; 85025; 92526; 92610; 92611; 93005; 93010; 93308; 93321; 93880; 94640; 94660; 94762; 97162; 97167; 97530; 97535; 99285-25; A9270; J1650; J1815; J7030; U0004

== ENCOUNTER → 2021-05-11 | Outpatient (CLI) | payer OTHER ==
[~2021-05-11] MED LIST changes: +Stiolto Respimat Inh INH
[2021-05-11 10:03] LABS: Hematocrit 41.6 % (37.0-53.0); Hemoglobin 14.1 g/dL (13.5-17.5); Mean Corpuscular HGB 33.7 pg (26.0-34.0); Mean Corpuscular HGB Conc 33.9 g/dL (31.5-36.5); Mean Corpuscular Volume 100 fL (80-100); Mean Platelet Volume 10.5 fL (9.1-12.4); Platelet Count 187 K/mm3 (150-400); RDW Coefficient Variation 13.3 % (11.7-14.2); RDW Standard Deviation 48.6 fL (35.1-46.3); Red Blood Cell Count 4.18 M/mm3 (4.30-5.90); White Blood Cell Count 4.48 K/mm3 (4.00-11.30)
[2021-05-11 12:02] LABS: Bun/Creatinine Ratio 14.2 (12.0-20.0); Calcium, Blood 9.4 mg/dL (8.5-10.1); Creatinine, Blood 1.27 mg/dL (0.60-1.20); Potassium, Blood 3.9 mmol/L (3.5-5.5)
== END | disposition home or self-care (01) ==
LOC: LAB RH 08:10 → EDSTATUS 09:56
PROVIDERS: Internal Medicine
DX: I63.9 Cerebral infarction, unspecified (principal)
CPT/HCPCS: 80048; 83970; 85027